=== PATIENT | male | born 1975 | race Caucasian/White ===

== ENCOUNTER 2016-12-16 09:03 | Emergency (ER) | payer OTHER ==
[~2016-12-16] VITALS: Ht 160 cm; Wt 68.0 kg
[~2016-12-16 09:03] MED LIST: AUGMENTIN 875875 MG PO; DULE1ARO1 INH; PAXIL20 MG PO
[2016-12-16] MEDS ORDERED: EFFEXOR XR75 M1 PO (09:16)
[2016-12-16] MEDS ORDERED: SYMBICORT1 AE1 INH (09:16)
[2016-12-16] MEDS ORDERED: AUGMENTIN 500 M1 TAB PO (10:33)
== END 2016-12-16 10:55 | disposition home or self-care (01) ==
LOC: ED 09:03
DX: S81.852A Open bite, left lower leg, initial encounter (principal); S61.051A Open bite of right thumb without damage to nail, initial encounter; Z98.890 Other specified postprocedural states; Z79.899 Other long term (current) drug therapy; W54.0XXA Bitten by dog, initial encounter; Y93.89 Activity, other specified; Y92.69 Other specified industrial and construction area as the place of occurrence of the external cause; Y99.9 Unspecified external cause status

== ENCOUNTER 2017-01-02 11:44 | Emergency (ER) | payer OTHER ==
[~2017-01-02] VITALS: Wt 68.0 kg
[~2017-01-02 11:44] MED LIST changes: +AUGMENTIN 500 M1 TAB PO; +EFFEXOR XR75 M1 PO; +SYMBICORT1 AE1 INH
[2017-01-02] MEDS ORDERED: NAPROSYN500 MG PO (12:08)
== END 2017-01-02 12:38 | disposition home or self-care (01) ==
LOC: ED 11:44
DX: M25.562 Pain in left knee (principal); R03.0 Elevated blood-pressure reading, without diagnosis of hypertension; Z79.899 Other long term (current) drug therapy

== ENCOUNTER → 2017-03-18 | Outpatient (CLI) | payer OTHER ==
[~2017-03-18] MED LIST changes: +NAPROSYN500 MG PO
[2017-03-18 16:42] LABS: BASO % 0.3 % (0.0-1.0); EOS # 0.1 10*3/uL (0.0-0.4); EOS % 0.8 % (1.0-4.0); HEMATOCRIT 42.6 % (42.0-52.0); LYMPH # 1.9 10*3/uL (1.3-4.4); LYMPH % 30.3 % (27.0-41.0); MEAN CELL VOLUME 82.4 fl (80.0-94.0); MEAN CORPUSCULAR HGB CONC 35.2 g/dl (33.0-37.0); MEAN PLATELET VOLUME 9.7 fl (9.6-12.3); MONO # 0.5 10*3/uL (0.1-1.0); MONO % 7.4 % (3.0-9.0); NEUT # 3.9 10*3/uL (2.3-7.9); PLATELET COUNT AUTOMATED 157 10*3/uL (130-400); RED BLOOD COUNT 5.17 10*6/uL (4.50-5.90); RED CELL DISTRI WIDTH 12.4 % (0-14.5); WHITE BLOOD COUNT 6.4 10*3/uL (4.8-10.8)
[2017-03-18 17:10] LABS: ALKALINE PHOSPHATASE 86 U/L (45-117); BILIRUBIN, DIRECT 0.2 mg/dL (0.0-0.2); BILIRUBIN, TOTAL 1.2 mg/dl (0.2-1.0); BUN 19 mg/dl (7-24); CARBON DIOXIDE 29 mmol/L (21-32); CHLORIDE 104 mmol/L (98-107); EST GLOM FILT AFRICAN AMERICAN > 60 ml/min; GLUCOSE 89 mg/dL (65-99); POTASSIUM 3.9 mmol/L (3.5-5.1); SGOT/AST 24 IU/L (3-35); SGPT/ALT 35 U/L (12-78); SODIUM 144 mmol/L (136-145); TOTAL PROTEIN 7.3 gm/dL (6.4-8.2)
== END | disposition home or self-care (01) ==
LOC: LAB 16:21
PROVIDERS: Family Medicine
DX: Z79.899 Other long term (current) drug therapy (principal)

== ENCOUNTER → 2017-07-06 | Outpatient (CLI) | payer OTHER | END | disposition home or self-care (01) | LOC: CARD 09:22 | DX: I08.1 Rheumatic disorders of both mitral and tricuspid valves (principal); R94.31 Abnormal electrocardiogram [ECG] [EKG]; R07.89 Other chest pain ==

== ENCOUNTER 2018-10-16 03:19 | Inpatient (IN) | payer OTHER ==
[~2018-10-16] VITALS: Ht 160 cm; Wt 62.7 kg
--- NOTE | ~2018-10-16 | EKG ---
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
--- NOTE | ~2018-10-16 | EKG ---
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
--- NOTE | ~2018-10-16 | EKG ---
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
--- NOTE | ~2018-10-16 | EKG ---
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
--- NOTE | ~2018-10-16 | CON ---
[place], [place] REPORT OF CONSULTATION NAME: [facility]AS [id number] UNIT #: [id number] ROOM: 404 DOCTOR: LORY HUERTA MD BIRTHDATE: [birth year] DOS: 10/16/2018 CARDIOLOGY CONSULTATION REASON FOR CONSULTATION: Precordial chest pain. HISTORY: The patient is a 43-year-old man who has no previously documented history of heart disease. He states that he was well until about a week ago. He was working out on a treadmill when he felt a pain in his chest, which was brief and resolved. The next day, he developed a burning sensation across his upper chest. This would come and go without provocation in the last several minutes at a time before it would resolve. He did not note any associated nausea, lightheadedness, palpitations or syncope. He states that these symptoms have persisted and therefore, he came to the Emergency Room. Since he has been in the hospital, his monitor has shown sinus rhythm with sinus bradycardia. Electrocardiograms show left ventricular hypertrophy, but no acute changes. Cardiac troponin levels have been negative. PAST MEDICAL HISTORY: Includes: 1. Asthma. 2. No previous history of high blood pressure, diabetes, myocardial infarction or stroke. MEDICATIONS: Prior to admission, Symbicort inhaler 1 puff daily and trazodone 50 mg at bedtime. ALLERGIES: The patient has no known drug allergies. FAMILY HISTORY: The patient's parents are both alive. Neither parent has a history of early coronary disease and there is no family history of diabetes, hypertension or stroke. He has one brother who is alive as well. REVIEW OF SYSTEMS: The patient denies diplopia or loss of vision. He denies focal weakness. He denies lightheadedness or syncope. He denies fevers, chills, sweats or recent weight change. He denies orthopnea or PND. He denies nausea or vomiting. He denies hemoptysis or hematemesis. He denies cough or dyspnea. He denies any change in bowel or bladder habits and denies blood in his stools or urine. He denies any peripheral edema or any history of clotting disorder. He denies any claudications. He denies any new skin rashes. The remainder of the review of systems is negative except as noted above. 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 PHYSICAL EXAMINATION: GENERAL: The patient is a slender white male who is awake, alert and oriented. VITAL SIGNS: Pulse is 50 and regular, blood pressure is 125/87. He is afebrile. He weighs 62.7 kg and has a body mass index of 24.5. HEENT: Normocephalic and atraumatic. Extraocular muscles are intact. Sclerae are clear. Pupils are equal, round and react to light. The oral mucosa is [place], [place] REPORT OF CONSULTATION NAME: SHARI PORRAS UNIT #: [id number] ROOM: [facility] DOCTOR: LORY HUERTA MD BIRTHDATE: [birth year] moist. Tongue is midline. NECK: Supple. He has no jugular distention. Carotids are full. There are no bruits. He has no neck or supraclavicular masses, no thyromegaly. LUNGS: Respirations are unlabored. His chest is clear to auscultation and percussion. He has no presacral edema or chest wall tenderness. CARDIOVASCULAR: His heart has a regular rhythm. There is a fourth heart sound, but no third heart sound or murmur. The PMI is not displaced. There is no precordial heave, lift or thrill. ABDOMEN: Soft and normally active without masses, organomegaly or bruits. EXTREMITIES: Showed no clubbing, cyanosis or edema. Peripheral pulses are easily palpated in the feet bilaterally. DIAGNOSTIC DATA: I reviewed his electrocardiogram, which showed sinus rhythm. He does have voltage criteria for left ventricular hypertrophy, but no acute ST changes. LABORATORY DATA: Serial troponin levels have been normal. Hemoglobin is 17.2, white count 5700, platelet count 162,000. Sodium 140, potassium 3.4, chloride 103, CO2 31, BUN 16, creatinine 1.09. IMPRESSION: 1. Precordial atypical chest pain. 2. History of asthma. PLAN: The patient has very few risk factors for coronary artery disease and his evaluation thus far is benign. I would pursue further evaluation with an exercise stress myocardial perfusion study. If that looks good, then other causes of chest pain such as GI or musculoskeletal should be considered. Further recommendations depend upon the results of the stress test. I thank the hospitalist physicians for asking our advice regarding his care. LORY HUERTA MD CM:CONSTR:REPORT OF CONSULTATION 0924 10/16/18 1009 interface
[2018-10-16 03:30] VITALS: BP 139/88
[2018-10-16 03:36] LABS: BASO % 0.2 % (0.0-1.0); EOS # 0.1 10*3/uL (0.0-0.4); EOS % 0.9 % (1.0-4.0); HEMATOCRIT 49.8 % (42.0-52.0); HEMOGLOBIN 17.2 g/dl (14.0-18.0); LYMPH # 1.2 10*3/uL (1.3-4.4); LYMPH % 21.1 % (27.0-41.0); MEAN CELL VOLUME 84.7 fl (80.0-94.0); MEAN CORPUSCULAR HGB 29.3 pg (27.0-31.0); MEAN CORPUSCULAR HGB CONC 34.5 g/dl (33.0-37.0); MEAN PLATELET VOLUME 9.9 fl (9.6-12.3); MONO # 0.4 10*3/uL (0.1-1.0); MONO % 7.7 % (3.0-9.0); NEUT % 69.9 % (47.0-73.0); PLATELET COUNT AUTOMATED 162 10*3/uL (130-400); RED BLOOD COUNT 5.88 10*6/uL (4.50-5.90); RED CELL DISTRI WIDTH 11.9 % (0-14.5); WHITE BLOOD COUNT 5.7 10*3/uL (4.8-10.8)
[2018-10-16 03:49] LABS: ACT PARTIAL THROMBO TIME 27.1 SECONDS (20.8-31.5); INTERNATIONAL NORM RATIO 1.1 (2.0-3.5)
[2018-10-16 03:52] LABS: ALBUMIN 4.3 gm/dl (3.1-4.5); ALKALINE PHOSPHATASE 75 U/L (45-117); BUN 16 mg/dl (7-24); CHLORIDE 103 mmol/L (98-107); CREATININE 1.09 mg/dL (0.70-1.30); POTASSIUM 3.4 mmol/L (3.5-5.1); SGOT/AST 27 IU/L (3-35); SGPT/ALT 34 U/L (12-78); SODIUM 140 mmol/L (136-145); TOTAL PROTEIN 7.4 gm/dL (6.4-8.2)
[2018-10-16 03:56] LABS: TROPONIN I < 0.015 ng/ml (<0.045)
[2018-10-16 04:08] VITALS: BP 110/74
--- NOTE | 2018-10-16 05:29 | NUR ---
HR 46, ASYMPTOMATIC, NOTIFIED DR OCAMPO
[2018-10-16 05:37] VITALS: BP 128/84
[2018-10-16 05:45] VITALS: BP 125/87
--- NOTE | 2018-10-16 05:45 | NUR ---
Time: 544 A 43 year old MALE admitted to under services of TREVOR HENDRICKS DO, Pt. arrived via stretcher from ER. Chief complaint: CHEST PAIN. MONITOR APPLIED. VSS. ORIENTED TO FLOOR. BELONGINGS CHECKLIST COMPLETE. EVELINE SHARMA
[2018-10-16] MEDS ORDERED: TRAZODONE50 MG PO (05:56)
--- NOTE | 2018-10-16 05:57 | NUR ---
MED LIST UPDATED PER PT
[2018-10-16 08:00] VITALS: BP 120/80
--- NOTE | 2018-10-16 08:56 | NUR ---
OFFICE STAFF WAS NOTIFIED OF DR. FERNÁNDEZ CONSULT. RESPONSE OF NOTIFICATION WAS OK THANK YOU. DERRICK NINO
--- NOTE | 2018-10-16 09:00 | NUR ---
Training And Development Project Leader in to talk to patient. Patient states lives at home with . There are no steps in the home. Physician: miguel marlow [facility] none Patient's level of ADLs: INDEPENDENT Patient has working utilities: all working DME: none Follow-up physician's appointment after d/c: will be made by hospitalist nurse director upon discharge Does patient want to access PORTAL?: no Discharge plan discussed with patient, patient lives at home with , is independent in adls and ambulation, works, drives, patient states he will be going home when able and denies any home needs. MENG CASTANEDA
--- NOTE | 2018-10-16 11:00 | NUR ---
INFORMED SIGNED CONSENT OBTAINED FOR CGXT WITH DR HUERTA. RESTING EKG SINUS BRADYCARDIA HR 47 BP 110/72 IN SUPINE POSITION, STANDING HR 58 BP 106/70. PT COMPLETED 12:00 MINUTES OF A TRI PROTOCOL WITH PT COMPLETING STAGE IV AT 3:00 AT 4.2 MPH AND A 16% GRADE. PT REACHED A PEAK HR OF 157 WHICH REPRESNTS 88% AND A PEAK BP OF 144/80. NO ARRYTHMIAS OR ST CHANGES NOTED. TEST TERMINATED DUE TO FATIGUE. LAST RECOVERY HR OF 85 BP 118/80. PT IN STABLE CONDITION, AWAITING NUCLEAR IMAGES.
[2018-10-16 12:00] VITALS: BP 130/83
[2018-10-16] MEDS ORDERED: PANTOPRAZOLE SO40 MG PO (16:05)
--- NOTE | 2018-10-16 16:27 | NUR ---
PT DISCHARGED AT THIS TIME. IV REMOVED AND PRESSURE DRESSING APPLIED. HEART MONITOR RETURNED TO FLOOR. VERBALIZED UNDERSTANDING OF DISCHARGE INSTRUCTIONS.
== END 2018-10-16 16:27 | disposition home or self-care (01) | DRG 206 ==
LOC: ED 03:19 → EDHOLD 05:36 → 4E 05:43
PROVIDERS: Emergency Medicine; ADMIT Internal Medicine
PROC: 4A02XM4 Measurement of Cardiac Total Activity, External Approach (ICD-10-PCS; principal; 2018-10-16)
PROC: 3E033HZ Introduction of Radioactive Substance into Peripheral Vein, Percutaneous Approach (ICD-10-PCS; principal; 2018-10-16)
DX: M94.0 Chondrocostal junction syndrome [Tietze] (principal); K21.9 Gastro-esophageal reflux disease without esophagitis; F41.9 Anxiety disorder, unspecified; G47.00 Insomnia, unspecified; E87.6 Hypokalemia; R73.9 Hyperglycemia, unspecified; E83.41 Hypermagnesemia; E80.6 Other disorders of bilirubin metabolism; Z79.899 Other long term (current) drug therapy

== ENCOUNTER → 2020-09-30 | Outpatient (CLI) | payer OTHER ==
[~2020-09-30] MED LIST changes: +PANTOPRAZOLE SO40 MG PO; +TRAZODONE50 MG PO
[2020-09-30 08:46] LABS: HEMATOCRIT 49.3 % (42.0-52.0); MEAN CORPUSCULAR HGB 28.5 pg (27.0-31.0); MEAN CORPUSCULAR HGB CONC 34.3 g/dl (33.0-37.0); MEAN PLATELET VOLUME 10.3 fl (9.6-12.3); RED BLOOD COUNT 5.94 10*6/uL (4.50-5.90); WHITE BLOOD COUNT 8.8 10*3/uL (4.8-10.8)
[2020-09-30 09:16] LABS: ALBUMIN 4.3 gm/dl (3.1-4.5); ALKALINE PHOSPHATASE 85 U/L (45-117); BUN 16 mg/dl (7-24); CHLORIDE 102 mmol/L (98-107); CHOLESTEROL 219 mg/dL (<200); CREATININE 1.09 mg/dL (0.70-1.30); HDL CHOLESTEROL 64 mg/dl (40-60); LDL CHOLESTEROL 107 mg/dL (9-159); POTASSIUM 3.9 mmol/L (3.5-5.1); SGOT/AST 25 IU/L (3-35); SGPT/ALT 42 U/L (12-78); SODIUM 140 mmol/L (136-145); TOTAL PROTEIN 7.8 gm/dL (6.4-8.2); TRIGLYCERIDES 241 mg/dl (<150); VLDL CHOLESTEROL 48 mg/dL (6-40)
== END | disposition home or self-care (01) ==
LOC: LAB 08:19
PROVIDERS: ATTEND Family Medicine
DX: J32.9 Chronic sinusitis, unspecified (principal); E78.00 Pure hypercholesterolemia, unspecified; R53.83 Other fatigue; E74.00 Glycogen storage disease, unspecified; F41.1 Generalized anxiety disorder

== ENCOUNTER → 2020-10-06 | Outpatient (CLI) | payer OTHER ==
[2020-10-06 18:20] LABS: BILIRUBIN, DIRECT 0.3 mg/dL (0.0-0.2)
[2020-10-07 16:10] LABS: ANTI-SMOOTH MUSCLE ANTIBODY 9 Units (0-19)
== END | disposition home or self-care (01) ==
LOC: LAB 17:38
PROVIDERS: ATTEND Family Medicine
DX: E80.7 Disorder of bilirubin metabolism, unspecified (principal)

== ENCOUNTER 2021-04-30 08:51 | Emergency (ER) | payer OTHER ==
[~2021-04-30] VITALS: Wt 68.0 kg
[2021-04-30] MEDS ORDERED: AUGMENTIN 875875 MG PO (09:49)
== END 2021-04-30 09:54 | disposition home or self-care (01) ==
LOC: ED 08:51
DX: S01.412A Laceration without foreign body of left cheek and temporomandibular area, initial encounter (principal); Z98.890 Other specified postprocedural states; Z79.899 Other long term (current) drug therapy; W54.0XXA Bitten by dog, initial encounter; Y93.89 Activity, other specified; Y92.89 Other specified places as the place of occurrence of the external cause; Y99.9 Unspecified external cause status

== ENCOUNTER 2021-05-08 16:25 | Emergency (ER) | payer OTHER | END 2021-05-08 17:28 | disposition home or self-care (01) | LOC: ED 16:25 | DX: S01.412D Laceration without foreign body of left cheek and temporomandibular area, subsequent encounter (principal); Z48.02 Encounter for removal of sutures; Z79.899 Other long term (current) drug therapy; X58.XXXD Exposure to other specified factors, subsequent encounter ==

== ENCOUNTER 2021-07-28 15:04 | Emergency (ER) | payer OTHER ==
[~2021-07-28] VITALS: Ht 160 cm; Wt 68.0 kg
[2021-07-28] MEDS ORDERED: IBUPROFEN600 MG PO (17:22)
[2021-07-28] MEDS ORDERED: AUGMENTIN 875875 MG PO (17:22)
== END 2021-07-28 20:49 | disposition home or self-care (01) ==
LOC: ED 15:04
DX: S01.85XA Open bite of other part of head, initial encounter (principal); W54.0XXA Bitten by dog, initial encounter; Y93.89 Activity, other specified; Y92.89 Other specified places as the place of occurrence of the external cause; Y99.8 Other external cause status

== ENCOUNTER 2021-07-31 16:20 | Emergency (ER) | payer OTHER ==
[~2021-07-31 16:20] MED LIST changes: +IBUPROFEN600 MG PO
== END 2021-07-31 18:18 | disposition home or self-care (01) ==
LOC: ED 16:20
DX: Z23 Encounter for immunization (principal); Z79.899 Other long term (current) drug therapy

== ENCOUNTER 2022-04-10 09:06 | Emergency (ER) | payer OTHER ==
[~2022-04-10] VITALS: Ht 160 cm; Wt 73.5 kg
[2022-04-10 09:47] LABS: BASO % 0.6 % (0.0-1.0); EOS # 0.2 10*3/uL (0.0-0.4); EOS % 3.3 % (1.0-4.0); HEMATOCRIT 44.9 % (42.0-52.0); LYMPH # 1.7 10*3/uL (1.3-4.4); LYMPH % 25.9 % (27.0-41.0); MEAN CELL VOLUME 84.1 fl (80.0-94.0); MEAN CORPUSCULAR HGB CONC 34.5 g/dl (33.0-37.0); MEAN PLATELET VOLUME 10.1 fl (9.6-12.3); MONO # 0.5 10*3/uL (0.1-1.0); MONO % 8.2 % (3.0-9.0); NEUT % 61.8 % (47.0-73.0); PLATELET COUNT AUTOMATED 181 10*3/uL (130-400); RED BLOOD COUNT 5.34 10*6/uL (4.50-5.90); RED CELL DISTRI WIDTH 12.2 % (0-14.5); WHITE BLOOD COUNT 6.5 10*3/uL (4.8-10.8)
[2022-04-10 09:59] LABS: ACT PARTIAL THROMBO TIME 27.9 SECONDS (20.0-32.1); INTERNATIONAL NORM RATIO 0.9 (2.0-3.5)
[2022-04-10 10:02] LABS: ALKALINE PHOSPHATASE 86 U/L (45-117); BUN 18 mg/dl (7-24); CHLORIDE 106 mmol/L (98-107); CREATININE 0.99 mg/dL (0.70-1.30); POTASSIUM 3.8 mmol/L (3.5-5.1); SGOT/AST 30 IU/L (3-35); SGPT/ALT 36 U/L (12-78); SODIUM 139 mmol/L (136-145); TOTAL PROTEIN 7.2 gm/dL (6.4-8.2)
== END 2022-04-10 11:49 | disposition home or self-care (01) ==
LOC: ED 09:06
PROVIDERS: Emergency Medicine
DX: R07.89 Other chest pain (principal); Z79.899 Other long term (current) drug therapy; K21.9 Gastro-esophageal reflux disease without esophagitis

== ENCOUNTER 2023-01-20 07:48 | Emergency (ER) | payer BC ==
[~2023-01-20] VITALS: Ht 160 cm; Wt 83.0 kg
[2023-01-20 08:12] LABS: BASO % 0.6 % (0.0-1.0); EOS # 0.2 10*3/uL (0.0-0.4); EOS % 2.4 % (1.0-4.0); HEMATOCRIT 46.5 % (42.0-52.0); LYMPH # 1.7 10*3/uL (1.3-4.4); MEAN CELL VOLUME 83.2 fl (80.0-94.0); MEAN CORPUSCULAR HGB 30.1 pg (27.0-31.0); MEAN CORPUSCULAR HGB CONC 36.1 g/dl (33.0-37.0); MEAN PLATELET VOLUME 10.9 fl (9.6-12.3); MONO # 0.6 10*3/uL (0.1-1.0); MONO % 8.7 % (3.0-9.0); NEUT # 4.6 10*3/uL (2.3-7.9); NEUT % 63.7 % (47.0-73.0); PLATELET COUNT AUTOMATED 163 10*3/uL (130-400); RED BLOOD COUNT 5.59 10*6/uL (4.50-5.90); RED CELL DISTRI WIDTH 13.1 % (0-14.5); WHITE BLOOD COUNT 7.2 10*3/uL (4.8-10.8)
[2023-01-20 08:28] LABS: ACT PARTIAL THROMBO TIME 27.9 SECONDS (20.0-32.1)
[2023-01-20 08:31] LABS: LIPASE 58 U/L (12-53)
[2023-01-20 08:34] LABS: ALKALINE PHOSPHATASE 103 U/L (46-116); BUN 15 mg/dl (9-23); CHLORIDE 103 mmol/L (98-107); POTASSIUM 3.8 mmol/L (3.4-5.1); SGPT/ALT 31 U/L (10-49); TOTAL PROTEIN 7.2 gm/dL (6.0-8.0)
[2023-01-20] MEDS ORDERED: FLUVOXAMINE100 MG PO (09:29)
[2023-01-20] MEDS ORDERED: AMLODIPINE BESYL5 MG PO (09:29)
[2023-01-20] MEDS ORDERED: OMEPRAZOLE MAGN20 MG PO (09:29)
[2023-01-20] MEDS ORDERED: MONTELUKAST SOD10 MG PO (09:29)
[2023-01-20] MEDS ORDERED: PROVENTIL HFA6.7 GM INH (09:30)
== END 2023-01-20 11:30 | disposition home or self-care (01) ==
LOC: ED 07:48
PROVIDERS: Emergency Medicine
DX: R07.9 Chest pain, unspecified (principal); R06.02 Shortness of breath; Z79.899 Other long term (current) drug therapy

== ENCOUNTER 2023-04-27 09:42 | Emergency (ER) | payer BC ==
[~2023-04-27] VITALS: Ht 160 cm; Wt 73.0 kg
[~2023-04-27 09:42] MED LIST changes: +AMLODIPINE BESYL5 MG PO; +FLUVOXAMINE100 MG PO; +MONTELUKAST SOD10 MG PO; +OMEPRAZOLE MAGN20 MG PO; +PROVENTIL HFA6.7 GM INH
[2023-04-27 10:31] LABS: BASO % 0.4 % (0.0-1.0); EOS # 0.1 10*3/uL (0.0-0.4); EOS % 2.4 % (1.0-4.0); HEMATOCRIT 44.7 % (42.0-52.0); LYMPH # 1.4 10*3/uL (1.3-4.4); LYMPH % 26.2 % (27.0-41.0); MEAN CELL VOLUME 82.8 fl (80.0-94.0); MEAN CORPUSCULAR HGB 29.4 pg (27.0-31.0); MEAN CORPUSCULAR HGB CONC 35.6 g/dl (33.0-37.0); MEAN PLATELET VOLUME 10.5 fl (9.6-12.3); MONO # 0.5 10*3/uL (0.1-1.0); MONO % 8.8 % (3.0-9.0); NEUT # 3.4 10*3/uL (2.3-7.9); NEUT % 61.8 % (47.0-73.0); PLATELET COUNT AUTOMATED 160 10*3/uL (130-400); RED CELL DISTRI WIDTH 12.2 % (0-14.5); WHITE BLOOD COUNT 5.5 10*3/uL (4.8-10.8)
[2023-04-27 10:53] LABS: ALKALINE PHOSPHATASE 100 U/L (46-116); BUN 12 mg/dl (9-23); CHLORIDE 104 mmol/L (98-107); POTASSIUM 3.9 mmol/L (3.4-5.1); SGPT/ALT 34 U/L (10-49); TOTAL PROTEIN 6.9 gm/dL (6.0-8.0)
== END 2023-04-27 13:46 | disposition home or self-care (01) ==
LOC: ED 09:42
PROVIDERS: Internal Medicine
DX: M79.18 Myalgia, other site (principal); R07.89 Other chest pain; Z79.899 Other long term (current) drug therapy

== ENCOUNTER 2023-08-05 07:44 | Emergency (ER) | payer BC ==
[~2023-08-05] VITALS: Ht 160 cm; Wt 74.8 kg
[2023-08-05 08:35] LABS: BASO % 0.3 % (0.0-1.0); EOS # 0.1 10*3/uL (0.0-0.4); EOS % 1.4 % (1.0-4.0); HEMATOCRIT 46.7 % (42.0-52.0); LYMPH # 1.4 10*3/uL (1.3-4.4); LYMPH % 24.8 % (27.0-41.0); MEAN CELL VOLUME 83.1 fl (80.0-94.0); MEAN CORPUSCULAR HGB 29.2 pg (27.0-31.0); MEAN CORPUSCULAR HGB CONC 35.1 g/dl (33.0-37.0); MEAN PLATELET VOLUME 9.8 fl (9.6-12.3); MONO # 0.4 10*3/uL (0.1-1.0); MONO % 7.6 % (3.0-9.0); NEUT # 3.8 10*3/uL (2.3-7.9); NEUT % 65.6 % (47.0-73.0); PLATELET COUNT AUTOMATED 186 10*3/uL (130-400); RED BLOOD COUNT 5.62 10*6/uL (4.50-5.90); RED CELL DISTRI WIDTH 12.2 % (0-14.5); WHITE BLOOD COUNT 5.8 10*3/uL (4.8-10.8)
[2023-08-05 08:59] LABS: ALKALINE PHOSPHATASE 92 U/L (46-116); BUN 14 mg/dl (9-23); CHLORIDE 105 mmol/L (98-107); LIPASE 49 U/L (12-53); POTASSIUM 3.8 mmol/L (3.4-5.1); SGPT/ALT 42 U/L (5-49); TOTAL PROTEIN 7.2 gm/dL (6.0-8.0)
[2023-08-05 11:55] LABS: BILIRUBIN Negative (Negative); BLOOD Negative (Negative); CLARITY Clear (Clear); COLOR Yellow (Yellow); GLUCOSE Negative (Negative); KETONE Negative (Negative); LEUKO ESTERASE Negative (Negative); NITRITE Negative (Negative); PH 6.5 (4.5-8.0)
[2023-08-05 12:06] LABS: MUCOUS TRACE
== END 2023-08-05 14:09 | disposition home or self-care (01) ==
LOC: ED 07:44
PROVIDERS: Emergency Medicine
DX: R10.84 Generalized abdominal pain (principal); R11.2 Nausea with vomiting, unspecified; F32.A Depression, unspecified; F41.9 Anxiety disorder, unspecified; J45.909 Unspecified asthma, uncomplicated; I10 Essential (primary) hypertension; Z98.890 Other specified postprocedural states

== ENCOUNTER 2023-08-24 18:03 | Emergency (ER) | payer BC ==
[~2023-08-24] VITALS: Ht 160 cm; Wt 76.7 kg
[2023-08-24 19:48] LABS: BASO % 0.4 % (0.0-1.0); EOS % 0.5 % (1.0-4.0); HEMATOCRIT 43.3 % (42.0-52.0); LYMPH # 1.2 10*3/uL (1.3-4.4); MEAN CELL VOLUME 82.2 fl (80.0-94.0); MEAN CORPUSCULAR HGB 29.6 pg (27.0-31.0); MEAN PLATELET VOLUME 10.5 fl (9.6-12.3); MONO # 0.6 10*3/uL (0.1-1.0); MONO % 8.5 % (3.0-9.0); NEUT # 5.4 10*3/uL (2.3-7.9); NEUT % 73.3 % (47.0-73.0); PLATELET COUNT AUTOMATED 165 10*3/uL (130-400); RED BLOOD COUNT 5.27 10*6/uL (4.50-5.90); RED CELL DISTRI WIDTH 12.3 % (0-14.5); WHITE BLOOD COUNT 7.3 10*3/uL (4.8-10.8)
[2023-08-24 20:02] LABS: BILIRUBIN Negative (Negative); BLOOD Trace-Lysed (Negative); CLARITY Clear (Clear); COLOR Yellow (Yellow); GLUCOSE Negative (Negative); KETONE Negative (Negative); LEUKO ESTERASE Negative (Negative); NITRITE Negative (Negative); PH 6.5 (4.5-8.0)
[2023-08-24 20:04] LABS: ALKALINE PHOSPHATASE 105 U/L (46-116); BUN 11 mg/dl (9-23); CHLORIDE 104 mmol/L (98-107); LIPASE 55 U/L (12-53); POTASSIUM 4.3 mmol/L (3.4-5.1); SGPT/ALT 36 U/L (5-49); TOTAL PROTEIN 6.9 gm/dL (6.0-8.0)
[2023-08-24 20:13] LABS: MUCOUS 1+; WBC 0-2 wbc/hpf (0-5)
[2023-08-24] MEDS ORDERED: FAMOTIDINE40 MG PO (22:05)
== END 2023-08-24 22:33 | disposition home or self-care (01) ==
LOC: ED 18:03
PROVIDERS: Family Medicine
DX: R11.2 Nausea with vomiting, unspecified (principal); K29.70 Gastritis, unspecified, without bleeding; Z79.899 Other long term (current) drug therapy; Z98.890 Other specified postprocedural states

== ENCOUNTER 2023-09-28 08:37 | Emergency (ER) | payer BC ==
[~2023-09-28] VITALS: Ht 160 cm; Wt 75.7 kg
[~2023-09-28 08:37] MED LIST changes: +FAMOTIDINE40 MG PO
[2023-09-28 09:45] LABS: BASO % 0.3 % (0.0-1.0); EOS # 0.1 10*3/uL (0.0-0.4); EOS % 1.6 % (1.0-4.0); LYMPH # 1.3 10*3/uL (1.3-4.4); LYMPH % 19.7 % (27.0-41.0); MEAN CELL VOLUME 83.8 fl (80.0-94.0); MEAN CORPUSCULAR HGB 28.4 pg (27.0-31.0); MONO # 0.4 10*3/uL (0.1-1.0); MONO % 6.4 % (3.0-9.0); NEUT # 4.6 10*3/uL (2.3-7.9); NEUT % 71.8 % (47.0-73.0); PLATELET COUNT AUTOMATED 183 10*3/uL (130-400); RED BLOOD COUNT 5.73 10*6/uL (4.50-5.90); RED CELL DISTRI WIDTH 12.3 % (0-14.5); WHITE BLOOD COUNT 6.4 10*3/uL (4.8-10.8)
[2023-09-28 10:05] LABS: ALKALINE PHOSPHATASE 98 U/L (46-116); BUN 14 mg/dl (9-23); CHLORIDE 101 mmol/L (98-107); LIPASE 50 U/L (12-53); POTASSIUM 3.8 mmol/L (3.4-5.1); SGPT/ALT 35 U/L (5-49); TOTAL PROTEIN 7.4 gm/dL (6.0-8.0)
[2023-09-28 12:08] LABS: BILIRUBIN Negative (Negative); BLOOD Negative (Negative); CLARITY Cloudy (Clear); COLOR Yellow (Yellow); GLUCOSE Negative (Negative); KETONE Trace (Negative); LEUKO ESTERASE Negative (Negative); NITRITE Negative (Negative); SPECIFIC GRAVITY 1.025 (1.001-1.030)
[2023-09-28 12:31] LABS: WBC 0-2 wbc/hpf (0-5)
== END 2023-09-28 13:00 | disposition home or self-care (01) ==
LOC: ED 08:37
PROVIDERS: Emergency Medicine
DX: R10.32 Left lower quadrant pain (principal); Z79.899 Other long term (current) drug therapy; Z98.890 Other specified postprocedural states

== ENCOUNTER 2023-11-15 07:02 | Emergency (ER) | payer BC ==
[~2023-11-15] VITALS: Ht 165.1 cm; Wt 73.0 kg
[2023-11-15] MEDS ORDERED: Ketorolac Tromethamine 60 MG/2 ML VIAL IM ONE (07:35)
[2023-11-15 07:45] LABS: BASO % 0.5 % (0.0-1.0); EOS # 0.1 10*3/uL (0.0-0.4); EOS % 1.5 % (1.0-4.0); HEMATOCRIT 46.5 % (42.0-52.0); LYMPH # 1.5 10*3/uL (1.3-4.4); LYMPH % 27.6 % (27.0-41.0); MEAN CELL VOLUME 85.2 fl (80.0-94.0); MEAN CORPUSCULAR HGB CONC 32.9 g/dl (33.0-37.0); MEAN PLATELET VOLUME 9.3 fl (9.6-12.3); MONO # 0.3 10*3/uL (0.1-1.0); NEUT # 3.5 10*3/uL (2.3-7.9); NEUT % 64.2 % (47.0-73.0); PLATELET COUNT AUTOMATED 192 10*3/uL (130-400); RED BLOOD COUNT 5.46 10*6/uL (4.50-5.90); RED CELL DISTRI WIDTH 12.2 % (0-14.5); WHITE BLOOD COUNT 5.5 10*3/uL (4.8-10.8)
[2023-11-15 07:51] LABS: BILIRUBIN Negative (Negative); BLOOD Negative (Negative); CLARITY Clear (Clear); COLOR Yellow (Yellow); GLUCOSE Negative (Negative); KETONE Negative (Negative); LEUKO ESTERASE Negative (Negative); NITRITE Negative (Negative); SPECIFIC GRAVITY 1.025 (1.001-1.030)
[2023-11-15 07:59] LABS: MUCOUS 1+; RBC 0-2 rbc/hpf (0-2)
[2023-11-15 08:00] LABS: ALKALINE PHOSPHATASE 93 U/L (46-116); BUN 12 mg/dl (9-23); CHLORIDE 102 mmol/L (98-107); LIPASE 59 U/L (12-53); POTASSIUM 3.6 mmol/L (3.4-5.1); SGPT/ALT 23 U/L (5-49); TOTAL PROTEIN 6.8 gm/dL (6.0-8.0)
[2023-11-15] MEDS ORDERED: IOHEXOL 300 MG/ML 100 ML VIAL IV ONE (09:25)
[2023-11-15] MEDS ORDERED: IOHEXOL 9 MG/ML (IODINE) ORAL SOLUTION PO ONE (09:25)
== END 2023-11-15 12:58 | disposition home or self-care (01) ==
LOC: ED 07:02
PROVIDERS: Emergency Medicine
DX: R10.31 Right lower quadrant pain (principal); R10.32 Left lower quadrant pain; F32.A Depression, unspecified; F41.9 Anxiety disorder, unspecified; J45.909 Unspecified asthma, uncomplicated; I10 Essential (primary) hypertension; Z98.890 Other specified postprocedural states

== ENCOUNTER 2023-12-19 07:51 | Emergency (ER) | payer BC ==
[~2023-12-19] VITALS: Ht 165.1 cm; Wt 75.7 kg
[2023-12-19 08:16] LABS: BASO % 0.3 % (0.0-1.0); EOS # 0.2 10*3/uL (0.0-0.4); EOS % 2.3 % (1.0-4.0); HEMATOCRIT 42.3 % (42.0-52.0); LYMPH # 1.3 10*3/uL (1.3-4.4); LYMPH % 16.1 % (27.0-41.0); MEAN CELL VOLUME 84.4 fl (80.0-94.0); MEAN CORPUSCULAR HGB 28.5 pg (27.0-31.0); MEAN CORPUSCULAR HGB CONC 33.8 g/dl (33.0-37.0); MEAN PLATELET VOLUME 10.3 fl (9.6-12.3); MONO # 0.5 10*3/uL (0.1-1.0); MONO % 6.3 % (3.0-9.0); NEUT # 5.9 10*3/uL (2.3-7.9); NEUT % 74.7 % (47.0-73.0); PLATELET COUNT AUTOMATED 159 10*3/uL (130-400); RED BLOOD COUNT 5.01 10*6/uL (4.50-5.90); RED CELL DISTRI WIDTH 12.3 % (0-14.5); WHITE BLOOD COUNT 7.8 10*3/uL (4.8-10.8)
[2023-12-19 08:27] LABS: ACT PARTIAL THROMBO TIME 29.1 SECONDS (20.0-32.1)
[2023-12-19 08:48] LABS: ALKALINE PHOSPHATASE 99 U/L (46-116); BUN 13 mg/dl (9-23); CHLORIDE 103 mmol/L (98-107); POTASSIUM 3.5 mmol/L (3.4-5.1); SGPT/ALT 22 U/L (5-49); TOTAL PROTEIN 6.6 gm/dL (6.0-8.0)
[2023-12-19] MEDS ORDERED: ZITHROMAX250 MG PO (10:49)
== END 2023-12-19 11:18 | disposition home or self-care (01) ==
LOC: ED 07:51
PROVIDERS: Student in an Organized Health Care Education/Training Program
DX: J18.9 Pneumonia, unspecified organism (principal); R13.10 Dysphagia, unspecified; F32.A Depression, unspecified; F41.9 Anxiety disorder, unspecified; J45.909 Unspecified asthma, uncomplicated; I10 Essential (primary) hypertension; Z98.890 Other specified postprocedural states

== ENCOUNTER 2023-12-22 07:42 | Emergency (ER) | payer BC ==
[~2023-12-22] VITALS: Ht 165.1 cm; Wt 75.7 kg
[~2023-12-22 07:42] MED LIST changes: +ZITHROMAX250 MG PO
[2023-12-22] MEDS ORDERED: PEPCID20 MG PO (08:54)
[2023-12-22] MEDS ORDERED: AMOX-CLAV 875-1 EACH PO (08:54)
== END 2023-12-22 09:25 | disposition home or self-care (01) ==
LOC: ED 07:42
DX: R13.10 Dysphagia, unspecified (principal); F32.A Depression, unspecified; F41.9 Anxiety disorder, unspecified; J45.909 Unspecified asthma, uncomplicated; I10 Essential (primary) hypertension; Z98.890 Other specified postprocedural states

== ENCOUNTER 2024-01-03 06:46 | Emergency (ER) | payer BC ==
[~2024-01-03] VITALS: Ht 165.1 cm; Wt 79.4 kg
[~2024-01-03 06:46] MED LIST changes: +AMOX-CLAV 875-1 EACH PO; +PEPCID20 MG PO
[2024-01-03] MEDS ORDERED: SODIUM CHLORIDE 0.9% 1,000 ML IV ONE (07:10)
[2024-01-03] MEDS ORDERED: Ondansetron Hydrochloride 4 MG/2 ML VIAL IV ONE (07:10)
[2024-01-03 07:29] LABS: BASO % 0.6 % (0.0-1.0); EOS # 0.1 10*3/uL (0.0-0.4); EOS % 1.8 % (1.0-4.0); HEMATOCRIT 43.6 % (42.0-52.0); LYMPH # 1.9 10*3/uL (1.3-4.4); LYMPH % 27.8 % (27.0-41.0); MEAN CELL VOLUME 83.2 fl (80.0-94.0); MEAN CORPUSCULAR HGB 28.2 pg (27.0-31.0); MEAN CORPUSCULAR HGB CONC 33.9 g/dl (33.0-37.0); MEAN PLATELET VOLUME 9.9 fl (9.6-12.3); MONO # 0.5 10*3/uL (0.1-1.0); MONO % 6.9 % (3.0-9.0); NEUT # 4.3 10*3/uL (2.3-7.9); NEUT % 62.5 % (47.0-73.0); PLATELET COUNT AUTOMATED 183 10*3/uL (130-400); RED BLOOD COUNT 5.24 10*6/uL (4.50-5.90); RED CELL DISTRI WIDTH 12.2 % (0-14.5); WHITE BLOOD COUNT 6.8 10*3/uL (4.8-10.8)
[2024-01-03 07:51] LABS: ALKALINE PHOSPHATASE 83 U/L (46-116); BUN 10 mg/dl (9-23); CHLORIDE 101 mmol/L (98-107); LIPASE 48 U/L (12-53); POTASSIUM 3.3 mmol/L (3.4-5.1); SGPT/ALT 35 U/L (5-49); TOTAL PROTEIN 6.5 gm/dL (6.0-8.0)
[2024-01-03] MEDS ORDERED: POTASSIUM CHLORIDE 20 MEQ TAB PO ONE (08:00)
[2024-01-03] MEDS ORDERED: ONDANSETRON4 MG SL (09:44)
== END 2024-01-03 09:48 | disposition home or self-care (01) ==
LOC: ED 06:46
PROVIDERS: Internal Medicine
DX: K52.9 Noninfective gastroenteritis and colitis, unspecified (principal); R11.2 Nausea with vomiting, unspecified; F32.A Depression, unspecified; F41.9 Anxiety disorder, unspecified; I10 Essential (primary) hypertension; Z98.890 Other specified postprocedural states

== ENCOUNTER 2024-02-01 05:59 | Emergency (ER) | payer BC ==
[~2024-02-01] VITALS: Ht 165.1 cm; Wt 75.7 kg
[~2024-02-01 05:59] MED LIST changes: +ONDANSETRON4 MG SL
[2024-02-01 06:57] LABS: BASO % 0.1 % (0.0-1.0); EOS % 0.3 % (1.0-4.0); HEMATOCRIT 39.9 % (42.0-52.0); LYMPH # 1.8 10*3/uL (1.3-4.4); LYMPH % 15.1 % (27.0-41.0); MEAN CORPUSCULAR HGB 28.7 pg (27.0-31.0); MEAN CORPUSCULAR HGB CONC 34.6 g/dl (33.0-37.0); MEAN PLATELET VOLUME 9.9 fl (9.6-12.3); MONO # 0.7 10*3/uL (0.1-1.0); NEUT % 78.2 % (47.0-73.0); PLATELET COUNT AUTOMATED 175 10*3/uL (130-400); RED BLOOD COUNT 4.81 10*6/uL (4.50-5.90); RED CELL DISTRI WIDTH 12.5 % (0-14.5); WHITE BLOOD COUNT 11.6 10*3/uL (4.8-10.8)
[2024-02-01 07:02] LABS: BILIRUBIN Negative (Negative); BLOOD Negative (Negative); CLARITY Clear (Clear); COLOR Yellow (Yellow); GLUCOSE Trace (Negative); KETONE Negative (Negative); LEUKO ESTERASE Negative (Negative); NITRITE Negative (Negative); PH 5.5 (4.5-8.0); SPECIFIC GRAVITY >= 1.030 (1.001-1.030)
[2024-02-01 07:11] LABS: MUCOUS 1+; RBC 0-2 rbc/hpf (0-2)
[2024-02-01 07:18] LABS: ALKALINE PHOSPHATASE 94 U/L (46-116); BUN 15 mg/dl (9-23); CHLORIDE 105 mmol/L (98-107); LIPASE 49 U/L (12-53); POTASSIUM 3.2 mmol/L (3.4-5.1); SGPT/ALT 26 U/L (5-49); TOTAL PROTEIN 6.5 gm/dL (6.0-8.0)
[2024-02-01] MEDS ORDERED: MIRALAX POWDER17 G1 PO (09:39)
[2024-02-01] MEDS ORDERED: POTASSIUM CHLORIDE 20 MEQ TAB PO ONE (09:40)
== END 2024-02-01 09:46 | disposition home or self-care (01) ==
LOC: ED 05:59
PROVIDERS: Emergency Medicine
DX: K59.00 Constipation, unspecified (principal); K21.9 Gastro-esophageal reflux disease without esophagitis; I10 Essential (primary) hypertension; F41.0 Panic disorder [episodic paroxysmal anxiety]; Z79.899 Other long term (current) drug therapy; Z90.49 Acquired absence of other specified parts of digestive tract; Z98.890 Other specified postprocedural states

== ENCOUNTER 2024-03-22 16:31 | Emergency (ER) | payer BC ==
[~2024-03-22] VITALS: Ht 165.1 cm; Wt 79.4 kg
[~2024-03-22 16:31] MED LIST changes: +MIRALAX POWDER17 G1 PO
[2024-03-22 18:00] LABS: BASO % 0.3 % (0.0-1.0); EOS # 0.1 10*3/uL (0.0-0.4); EOS % 1.6 % (1.0-4.0); HEMATOCRIT 43.4 % (42.0-52.0); LYMPH # 1.7 10*3/uL (1.3-4.4); LYMPH % 28.1 % (27.0-41.0); MEAN CELL VOLUME 83.1 fl (80.0-94.0); MEAN CORPUSCULAR HGB 29.5 pg (27.0-31.0); MEAN CORPUSCULAR HGB CONC 35.5 g/dl (33.0-37.0); MEAN PLATELET VOLUME 10.4 fl (9.6-12.3); MONO # 0.5 10*3/uL (0.1-1.0); MONO % 8.2 % (3.0-9.0); NEUT # 3.8 10*3/uL (2.3-7.9); NEUT % 61.5 % (47.0-73.0); PLATELET COUNT AUTOMATED 157 10*3/uL (130-400); RED BLOOD COUNT 5.22 10*6/uL (4.50-5.90); RED CELL DISTRI WIDTH 12.6 % (0-14.5); WHITE BLOOD COUNT 6.2 10*3/uL (4.8-10.8)
[2024-03-22] MEDS ORDERED: DIATRIZOATE MEG/DIATRIZO. SOD 120 ML BOT PO ONE (18:15)
[2024-03-22 18:19] LABS: BUN 12 mg/dl (9-23); CHLORIDE 105 mmol/L (98-107); POTASSIUM 3.9 mmol/L (3.4-5.1)
[2024-03-22] MEDS ORDERED: DIATRIZOATE MEG/DIATRIZO. SOD 120 ML BOT ONE (18:26)
[2024-03-22] MEDS ORDERED: CARAFATE1 G1 PO (20:43)
== END 2024-03-22 21:01 | disposition home or self-care (01) ==
LOC: ED 16:31
PROVIDERS: Nurse Practitioner
DX: R13.10 Dysphagia, unspecified (principal); R68.84 Jaw pain; K21.9 Gastro-esophageal reflux disease without esophagitis; Z79.899 Other long term (current) drug therapy; Z90.49 Acquired absence of other specified parts of digestive tract; Z98.890 Other specified postprocedural states

== ENCOUNTER 2024-05-08 06:37 | Emergency (ER) | payer BC ==
[~2024-05-08] VITALS: Ht 165.1 cm; Wt 74.8 kg
[~2024-05-08 06:37] MED LIST changes: +CARAFATE1 G1 PO
[2024-05-08] MEDS ORDERED: MG-AL HYDROXIDE/SIMETICONE 30 ML UDC PO STA (07:00)
[2024-05-08] MEDS ORDERED: Dicyclomine Hydrochloride 20 MG/10 ML OSYR PO STA (07:00)
[2024-05-08] MEDS ORDERED: Lidocaine Hydrochloride 15 ML UDC PO STA (07:00)
[2024-05-08 07:21] LABS: BASO % 0.3 % (0.0-1.0); EOS # 0.2 10*3/uL (0.0-0.4); HEMATOCRIT 42.3 % (42.0-52.0); LYMPH # 1.6 10*3/uL (1.3-4.4); LYMPH % 20.5 % (27.0-41.0); MEAN CELL VOLUME 83.9 fl (80.0-94.0); MEAN CORPUSCULAR HGB 28.8 pg (27.0-31.0); MEAN CORPUSCULAR HGB CONC 34.3 g/dl (33.0-37.0); MEAN PLATELET VOLUME 10.4 fl (9.6-12.3); MONO # 0.4 10*3/uL (0.1-1.0); MONO % 5.8 % (3.0-9.0); NEUT # 5.4 10*3/uL (2.3-7.9); NEUT % 70.9 % (47.0-73.0); PLATELET COUNT AUTOMATED 161 10*3/uL (130-400); RED BLOOD COUNT 5.04 10*6/uL (4.50-5.90); RED CELL DISTRI WIDTH 12.2 % (0-14.5); WHITE BLOOD COUNT 7.6 10*3/uL (4.8-10.8)
[2024-05-08 07:42] LABS: ALKALINE PHOSPHATASE 93 U/L (46-116); BUN 20 mg/dl (9-23); CHLORIDE 104 mmol/L (98-107); LIPASE 48 U/L (12-53); SGPT/ALT 29 U/L (5-49); TOTAL PROTEIN 6.4 gm/dL (6.0-8.0)
== END 2024-05-08 08:50 | disposition home or self-care (01) ==
LOC: ED 06:37
PROVIDERS: Internal Medicine
DX: K59.00 Constipation, unspecified (principal); Z79.899 Other long term (current) drug therapy; Z90.49 Acquired absence of other specified parts of digestive tract; Z98.890 Other specified postprocedural states

== ENCOUNTER 2024-05-31 22:19 | Emergency (ER) | payer OTHER, BC ==
[~2024-05-31] VITALS: Ht 165.1 cm; Wt 79.4 kg
[2024-05-31] MEDS ORDERED: METHOCARBAMOL 500 MG TAB PO ONE (22:45)
[2024-05-31] MEDS ORDERED: Ketorolac Tromethamine 60 MG/2 ML VIAL IM ONE (22:45)
[2024-05-31] MEDS ORDERED: NAPROXEN250 MG PO (23:09)
[2024-05-31] MEDS ORDERED: METHOCARBAMOL500 M1 PO (23:09)
== END 2024-05-31 23:20 | disposition home or self-care (01) ==
LOC: ED 22:19
DX: S16.1XXA Strain of muscle, fascia and tendon at neck level, initial encounter (principal); S29.012A Strain of muscle and tendon of back wall of thorax, initial encounter; M25.512 Pain in left shoulder; M25.511 Pain in right shoulder; J34.89 Other specified disorders of nose and nasal sinuses; F32.A Depression, unspecified; F41.9 Anxiety disorder, unspecified; J45.909 Unspecified asthma, uncomplicated; I10 Essential (primary) hypertension; Z90.49 Acquired absence of other specified parts of digestive tract; Z98.890 Other specified postprocedural states; V89.2XXA Person injured in unspecified motor-vehicle accident, traffic, initial encounter; Y93.89 Activity, other specified; Y92.410 Unspecified street and highway as the place of occurrence of the external cause; Y99.8 Other external cause status

== ENCOUNTER 2024-07-04 06:03 | Emergency (ER) | payer BC ==
[~2024-07-04] VITALS: Ht 165.1 cm; Wt 76.7 kg
[~2024-07-04 06:03] MED LIST changes: +METHOCARBAMOL500 M1 PO; +NAPROXEN250 MG PO
[2024-07-04] MEDS ORDERED: Ondansetron Hydrochloride 4 MG TAB SL ONE (06:15)
[2024-07-04] MEDS ORDERED: Ondansetron4 MG PO (06:52)
== END 2024-07-04 06:58 | disposition home or self-care (01) ==
LOC: ED 06:03
DX: B34.9 Viral infection, unspecified (principal); Z20.822 Contact with and (suspected) exposure to COVID-19; R11.2 Nausea with vomiting, unspecified; R10.10 Upper abdominal pain, unspecified; F32.A Depression, unspecified; F41.9 Anxiety disorder, unspecified; J45.909 Unspecified asthma, uncomplicated; I10 Essential (primary) hypertension; Z90.49 Acquired absence of other specified parts of digestive tract; Z98.890 Other specified postprocedural states

== ENCOUNTER 2024-07-16 07:13 | Emergency (ER) | payer BC ==
[~2024-07-16] VITALS: Ht 165.1 cm; Wt 76.7 kg
[~2024-07-16 07:13] MED LIST changes: +Ondansetron4 MG PO
[2024-07-16] MEDS ORDERED: Dexamethasone Sodium Phospha 20 MG/5 ML VIAL IM ONE (07:40)
[2024-07-16] MEDS ORDERED: Ketorolac Tromethamine 30 MG/ML VIAL IM ONE (07:40)
[2024-07-16] MEDS ORDERED: LIDO KING1 EACH T (08:16)
[2024-07-16] MEDS ORDERED: MELOXICAM15 MG PO (08:16)
[2024-07-16] MEDS ORDERED: CYCLOBENZAPRINE5 M3 PO (08:16)
[2024-07-16] MEDS ORDERED: MEDROL DOSEPAK4 MG PO (08:16)
== END 2024-07-16 09:18 | disposition home or self-care (01) ==
LOC: ED 07:13
DX: M62.830 Muscle spasm of back (principal); F32.A Depression, unspecified; F41.9 Anxiety disorder, unspecified; J45.909 Unspecified asthma, uncomplicated; I10 Essential (primary) hypertension; Z90.49 Acquired absence of other specified parts of digestive tract; Z98.890 Other specified postprocedural states

== ENCOUNTER 2024-08-15 06:29 | Emergency (ER) | payer BC ==
[~2024-08-15] VITALS: Ht 167.6 cm; Wt 77.1 kg
[~2024-08-15 06:29] MED LIST changes: +CYCLOBENZAPRINE5 M3 PO; +LIDO KING1 EACH T; +MEDROL DOSEPAK4 MG PO; +MELOXICAM15 MG PO
[2024-08-15] MEDS ORDERED: IBUPROFEN 600 MG TAB PO ONE (07:20)
[2024-08-15] MEDS ORDERED: predniSONE 20 MG TAB PO ONE (07:30)
[2024-08-15 08:35] LABS: BILIRUBIN Negative (Negative); BLOOD Negative (Negative); CLARITY Turbid (Clear); COLOR Yellow (Yellow); GLUCOSE Negative (Negative); KETONE Trace (Negative); LEUKO ESTERASE Negative (Negative); NITRITE Negative (Negative); SPECIFIC GRAVITY 1.025 (1.001-1.030)
[2024-08-15] MEDS ORDERED: OMNICEF300 MG PO (08:50)
[2024-08-15] MEDS ORDERED: NAPROSYN500 MG PO (08:50)
[2024-08-15] MEDS ORDERED: MEDROL DOSEPAK4 MG PO (08:50)
[2024-08-15 09:10] LABS: CALCIUM OXALATE CRYSTALS Trace; RBC 0-2 rbc/hpf (0-2)
[2024-08-15 11:00] LABS: WBC 0-2 wbc/hpf (0-5)
== END 2024-08-15 08:59 | disposition home or self-care (01) ==
LOC: ED 06:29
DX: M54.42 Lumbago with sciatica, left side (principal); M54.41 Lumbago with sciatica, right side; M47.816 Spondylosis without myelopathy or radiculopathy, lumbar region; N30.90 Cystitis, unspecified without hematuria; Z79.899 Other long term (current) drug therapy; Z90.49 Acquired absence of other specified parts of digestive tract; Z98.890 Other specified postprocedural states

== ENCOUNTER 2024-08-29 06:20 | Emergency (ER) | payer BC ==
[~2024-08-29] VITALS: Ht 167.6 cm; Wt 83.5 kg
[~2024-08-29 06:20] MED LIST changes: +OMNICEF300 MG PO
[2024-08-29] MEDS ORDERED: Ondansetron Hydrochloride 4 MG TAB SL ONE (06:35)
[2024-08-29 06:49] LABS: BASO % 0.1 % (0.0-1.0); EOS % 0.1 % (1.0-4.0); HEMATOCRIT 47.8 % (42.0-52.0); MEAN CELL VOLUME 85.7 fl (80.0-94.0); MEAN CORPUSCULAR HGB 28.5 pg (27.0-31.0); MEAN CORPUSCULAR HGB CONC 33.3 g/dl (33.0-37.0); MEAN PLATELET VOLUME 9.9 fl (9.6-12.3); MONO # 0.5 10*3/uL (0.1-1.0); MONO % 3.3 % (3.0-9.0); NEUT # 12.2 10*3/uL (2.3-7.9); NEUT % 86.8 % (47.0-73.0); PLATELET COUNT AUTOMATED 159 10*3/uL (130-400); RED BLOOD COUNT 5.58 10*6/uL (4.50-5.90); RED CELL DISTRI WIDTH 13.3 % (0-14.5); WHITE BLOOD COUNT 14.1 10*3/uL (4.8-10.8)
[2024-08-29 07:05] LABS: ALKALINE PHOSPHATASE 90 U/L (46-116); BUN 15 mg/dl (9-23); CHLORIDE 101 mmol/L (98-107); LIPASE 54 U/L (12-53); POTASSIUM 4.4 mmol/L (3.4-5.1); SGPT/ALT 36 U/L (5-49); TOTAL PROTEIN 6.8 gm/dL (6.0-8.0)
[2024-08-29] MEDS ORDERED: Ondansetron4 MG PO (08:30)
[2024-08-29] MEDS ORDERED: CIPRO500 MG PO (08:30)
[2024-08-29] MEDS ORDERED: ANTI-DIARRHEAL2 MG PO (08:30)
== END 2024-08-29 08:41 | disposition home or self-care (01) ==
LOC: ED 06:20
PROVIDERS: Internal Medicine
DX: R11.2 Nausea with vomiting, unspecified (principal); R19.7 Diarrhea, unspecified; Z79.2 Long term (current) use of antibiotics; Z79.899 Other long term (current) drug therapy; Z90.49 Acquired absence of other specified parts of digestive tract

== ENCOUNTER 2024-09-17 07:39 | Emergency (ER) | payer BC ==
[~2024-09-17] VITALS: Ht 167.6 cm; Wt 83.5 kg
[~2024-09-17 07:39] MED LIST changes: +ANTI-DIARRHEAL2 MG PO; +CIPRO500 MG PO
[2024-09-17] MEDS ORDERED: Motrin,Rufen800 MG PO (08:56)
[2024-09-17] MEDS ORDERED: CYCLOBENZAPRINE5 M3 PO (08:56)
== END 2024-09-17 09:03 | disposition home or self-care (01) ==
LOC: ED 07:39
DX: S16.1XXA Strain of muscle, fascia and tendon at neck level, initial encounter (principal); J45.909 Unspecified asthma, uncomplicated; I10 Essential (primary) hypertension; Z79.899 Other long term (current) drug therapy; K21.9 Gastro-esophageal reflux disease without esophagitis; Z90.49 Acquired absence of other specified parts of digestive tract; Z98.890 Other specified postprocedural states; R07.89 Other chest pain

== ENCOUNTER 2024-12-12 07:38 | Emergency (ER) | payer BC ==
[~2024-12-12] VITALS: Wt 78.9 kg
[~2024-12-12 07:38] MED LIST changes: +Motrin,Rufen800 MG PO
[2024-12-12] MEDS ORDERED: IBUPROFEN 800 MG TAB PO ONE (07:50)
== END 2024-12-12 08:00 | disposition home or self-care (01) ==
LOC: ED 07:38
DX: M19.072 Primary osteoarthritis, left ankle and foot (principal); M19.071 Primary osteoarthritis, right ankle and foot; M25.562 Pain in left knee; M25.561 Pain in right knee; F32.A Depression, unspecified; F41.9 Anxiety disorder, unspecified; J45.909 Unspecified asthma, uncomplicated; I10 Essential (primary) hypertension; K21.9 Gastro-esophageal reflux disease without esophagitis; Z90.49 Acquired absence of other specified parts of digestive tract; Z98.890 Other specified postprocedural states

== ENCOUNTER 2025-04-22 06:18 | Emergency (ER) | payer BC ==
[~2025-04-22] VITALS: Ht 167.6 cm; Wt 81.6 kg
[~2025-04-22 06:18] MED LIST changes: +ASPIRIN ADULT L81 M2 PO; +ATORVASTATIN CA40 M1 PO; +CLOPIDOGREL75 MG PO; +GABAPENTIN100 M2 PO; +NORVASC5 MG PO; +PROZAC10 MG PO; +VENT7GM INH
== END 2025-04-22 07:44 | disposition home or self-care (01) ==
LOC: ED 06:18
DX: F41.9 Anxiety disorder, unspecified (principal); I10 Essential (primary) hypertension; J45.909 Unspecified asthma, uncomplicated; G21.9 Secondary parkinsonism, unspecified; F32.A Depression, unspecified; Z79.82 Long term (current) use of aspirin; Z79.899 Other long term (current) drug therapy; Z90.49 Acquired absence of other specified parts of digestive tract